=== PATIENT | female | born 1995 | race Caucasian/White ===

== ENCOUNTER 2020-04-18 20:22 | Emergency (ER) | payer BC, SELFPAY ==
[2020-04-18 20:23] VITALS: BP 146/90; PULSE 92; RESP 16; TEMP 36.3; O2SAT 100; BMI 26.5
--- NOTE | 2020-04-18 23:31 | ED.VIS.UPPEX ---
History of Present Illness Chief Complaint: Laceration Informant: Patient Occurred: Today - JPTA Mechanism/Context: Injury Context: Sudden Onset Timing: Continuous Quality of Pain: - - sore Location: right middle finger Current Severity: Mild Maximum Severity: Moderate Worsened by: moving, palpation Relieved by: remaining still Associated Symptoms: Negative for: Parasthesia, Weakness, Loss of Funtion Narrative: Patient is with family camping, they were helping to move a deck to a camper, and she accidentally got her right middle finger smashed between the wood of the deck and nearby brick. Sustained a laceration that she suspects needs fixed. [id number]. Tetanus Immunization: 5-10 years - around 5 yrs Past Medical History - Allergies and Home Meds Allergies/Adverse Reactions: Allergies No Known Allergies Allergy (Verified 04/18/20 20:24) Primary Care Physician: ANTHONY CHEEMA [Other] Past Medical History: None Lives: With Family Smoking Status: Never smoker Review of Systems Musculoskeletal: Reports: Extremity Pain Skin: Reports: Abrasions, Wounds Neurological: Denies: Headache, Weakness, Numbness Physical Exam Vital Signs/Narrative: Vital Signs Temp Pulse Resp BP Pulse Ox 04/18/20 20:23 97.3 F L 92 16 146/90 H 100 General: Well nourished, Well developed, - - Well-appearing no acute distress Head: Normocephalic, Atraumatic Extremeties: Mildly tender right middle finger, mostly at the areas of skin injury. No deformity. Full range of motion with intact FDS, FDP, and extensor. Skin: Normal color, No rash, Trauma - 3 cm laceration to the ulnar aspect, volar right middle finger from the pad to just proximal to the DIPJ. Subcutaneous, linear, clean, a little jagged but without tissue loss, no gross contamination, nothing but subcutaneous fat seen within the wound. Also abrasions on the dorsal aspect of the distal phalanx of the same finger, without nail injury or subungual hematoma. Neurological: Alert, Oriented x3, Cranial nerves II-XII grossly intact, Normal Strength, Normal Sensation, Normal Gait Psychological: Normal affect, Normal Mood Diagnostic/Tx/Re-eval - Medical Decision Making The laceration was repaired only without the need for digital block. I excised small amounts of epidermis that were hanging off of the abrasion on the dorsal side of the finger, and the wounds were cleansed thoroughly, dressed with bacitracin and a dressing, and she was given ibuprofen. Suture removal in 10-14 days. Procedures - Lacerations Right middle finger Length: 3 cm Depth: Sub Q Shape: Linear Prep: Sterile Conditions, Chlorhexadine Laceration repair: Irrigated, Lidocaine with epi, Local - 1cc Number of Sutures/[place]: 7 Suture Information: Ethilon, Simple, 5-0 ED Disposition - Plan for ED Patient: Disposition: Home or Assisted Living Diagnosis: Laceration of right middle finger w/o foreign body w/o damage to nail Instructions: ED Laceration Ext Sutr Stap Tape Referrals: ANTHONY CHEEMA [Other] - 10-14 Days suture removal (or ER/urgent care)
[2020-04-18] MEDS: Lidocaine/Epi/Tetracaine 50 ML 1 APPLIC TOPICAL (23:46)
[2020-04-18] MEDS: Ibuprofen 600 MG Tablet PO (23:46)
[2020-04-18 23:47] VITALS: PULSE 72; RESP 18; O2SAT 100
== END 2020-04-18 23:48 | disposition home or self-care (01) ==
PROVIDERS: Emergency Provider Emergency Medicine
DX: S61.212A Laceration without foreign body of right middle finger without damage to nail, initial encounter (principal); W23.0XXA Caught, crushed, jammed, or pinched between moving objects, initial encounter; Y93.9 Activity, unspecified; Y92.9 Unspecified place or not applicable; Y99.9 Unspecified external cause status
CPT/HCPCS: 12002; 99285